=== PATIENT | female | born 1975 | race Asian ===

== ENCOUNTER 2020-12-19 07:37 | Emergency (ER) | payer BC ==
[~2020-12-19] VITALS: Ht 157.5 cm; Wt 81.6 kg
[2020-12-19 07:47] VITALS: TEMP 97
[2020-12-19 09:07] LABS: POTASSIUM 3.4 mmol/L (3.6-5.2); SODIUM 136 mmol/L (136-145)
[2020-12-19 09:33] LABS: PLATELET COUNT 309 K/uL (152-353)
[2020-12-19 11:05] VITALS: BP 151/91
== END 2020-12-19 11:05 | disposition home or self-care (01) ==
LOC: ED 07:37
PROVIDERS: Hospitalist
DX: J06.9 Acute upper respiratory infection, unspecified (principal); U07.1 COVID-19; R11.2 Nausea with vomiting, unspecified
CPT/HCPCS: 36415; 80053; 82550; 83880; 84484; 85027; 85610; 85730; 93005; 96360; 96375; 99284; J0360; J1100; J2405